=== PATIENT | female | born 1980 ===

== ENCOUNTER 2020-04-06 13:10 | Emergency (ER) | payer OTHER ==
[~2020-04-06] VITALS: Ht 160 cm; Wt 100.7 kg
[2020-04-06] MEDS ORDERED: CLARITIN5 MG (13:18)
[2020-04-06] MEDS ORDERED: NORVASC5 MG (13:18)
[2020-04-06] MEDS ORDERED: CYMBALTA60 MG (13:19)
[2020-04-06] MEDS ORDERED: CYMBALTA30 MG (13:19)
[2020-04-06] MEDS ORDERED: BUSPIRONE HCL10 MG (13:20)
[2020-04-06] MEDS ORDERED: PROTONIX20 MG (13:20)
[2020-04-06] MEDS ORDERED: NEURONTIN800 MG (13:22)
[2020-04-06] MEDS ORDERED: CLONAZEPAM0.25 MG (13:23)
[2020-04-06] MEDS ORDERED: FEXMID7.5 MG (13:23)
[2020-04-06] MEDS ORDERED: CLONAZEPAM2 MG (13:23)
[2020-04-06] MEDS ORDERED: HUMIRA(CF)40 MG/0.4 (13:24)
[2020-04-06] MEDS ORDERED: PEPCID AC20 MG (13:24)
[2020-04-06] MEDS ORDERED: SINGULAIR10 MG (13:24)
[2020-04-06] MEDS ORDERED: [UNRECOGNIZED DRUG - OTHER] (13:25)
== END 2020-04-06 14:23 | disposition home or self-care (01) ==
LOC: ER 13:10
DX: J32.1 Chronic frontal sinusitis (principal)